=== PATIENT | female | born 1955 | race Caucasian/White ===

== ENCOUNTER 2022-05-17 08:59 | Emergency (ER) | payer MEDICARE, OTHER ==
[~2022-05-17] VITALS: Ht 160 cm; Wt 81.0 kg
[~2022-05-17 08:59] MED LIST: ACET-2080 PO; ACET500C51 PO; ARIP15TA27 PO; CIME400T PO; CYCL10TA16 PO; HYDR50CA7 PO; LORA0.5T83 PO; MEDR10TA PO; OMEP20CA12 PO; OXCA150T3 PO; PANT-31 PO; POTA-185 PO; TRAZ-257 PO
[2022-05-17] MEDS ORDERED: FLUO20CA36 PO (09:43)
[2022-05-17] MEDS ORDERED: FLUoxetine HCL 20 MG CAPSULE PO ONE (10:00)
[2022-05-17] MEDS ORDERED: AmLODIPine BESYLATE 5 MG TABLET PO ONE (10:00)
[2022-05-17] MEDS ORDERED: LORazepam 1 MG TABLET PO ONE (10:00)
[2022-05-17 10:10] LABS: BASOPHILS % (AUTO) 0.4 % (0.0-2.0); EOSINOPHILS % (AUTO) 0.1 % (1.0-6.0); HEMATOCRIT 42.5 % (36-46); HEMOGLOBIN 14.1 g/dL (12.0-16.0); LYMPHOCYTES # (AUTO) 0.6 K/uL (1.0-4.8); LYMPHOCYTES % (AUTO) 7.6 % (22.0-44.0); MEAN CORPUSCULAR HEMOGLOBIN 30.4 pg (26.0-34.0); MEAN CORPUSCULAR HGB CONC 33.3 G/dL (31.0-37.0); MEAN CORPUSCULAR VOLUME 91 fL (80-100); MONOCYTES # (AUTO) 0.6 K/uL (0.1-1.0); MONOCYTES % (AUTO) 8.2 % (2.0-9.0); NEUTROPHILS # (AUTO) 6.1 K/uL (1.8-7.7); NEUTROPHILS % (AUTO) 83.7 % (40.0-70.0); PLATELET COUNT (AUTO) 399 K/uL (150-450); RED BLOOD CELL COUNT(AUTO) 4.66 MIL/uL (4.00-5.20)
[2022-05-17 10:17] LABS: ANION GAP 12 mmol/L (8-16); CALCIUM, TOTAL 9.7 mg/dL (8.8-10.5); CARBON DIOXIDE 24 mmol/L (22-29); CHLORIDE 99 mmol/L (98-107); CREATININE 1.49 mg/dL (0.60-1.30); GLUCOSE,RANDOM 107 mg/dL (70-110); POTASSIUM 4.2 mmol/L (3.5-5.1); SODIUM SERUM 135 mmol/L (136-145); UREA NITROGEN, BLOOD 10 mg/dL (7-18)
[2022-05-17 10:18] LABS: GLOMERULAR FILTR. RATE CALC 35 mL/min (>60)
[2022-05-17 10:23] LABS: ALANINE AMINOTRANSFERASE 16 U/L (12-78); ALBUMIN 3.8 g/dL (3.4-5.0); ALKALINE PHOSPHATASE 54 U/L (46-116); ASPARTATE AMINOTRANSFERASE 23 U/L (15-37); BILIRUBIN,TOTAL 0.7 mg/dL (0.1-1.0); LIPASE 69 U/L (73-393); TOTAL PROTEIN, SERUM 8.4 g/dL (6.4-8.2)
[2022-05-17 13:16] VITALS: BP 132/91
== END 2022-05-17 13:30 | disposition home or self-care (01) ==
LOC: EMS 09:01
DX: R53.1 Weakness (principal); I10 Essential (primary) hypertension; F25.9 Schizoaffective disorder, unspecified; F32.A Depression, unspecified; I25.10 Atherosclerotic heart disease of native coronary artery without angina pectoris; Z86.79 Personal history of other diseases of the circulatory system; Z86.59 Personal history of other mental and behavioral disorders; Z87.09 Personal history of other diseases of the respiratory system; Z90.49 Acquired absence of other specified parts of digestive tract; Z88.1 Allergy status to other antibiotic agents; Z88.0 Allergy status to penicillin; Z88.8 Allergy status to other drugs, medicaments and biological substances
CPT/HCPCS: 99285; 80053; 83690; 84484; 85025; 36415; G0480